=== PATIENT | male | born 1950 | race African-American/Black ===

== ENCOUNTER 2017-02-18 13:36 | Inpatient (IN) ==
--- NOTE | 2017-02-18 13:50 | Emergency Department Note ---
Addendum entered and electronically signed by Kumar Pulido DO 02/18/17 14:51: MRI discussed with hospitalist for further evaluation of light headedness. Hospitalist will attempt to obtain MRI compatability from [facility] to obtain MRI workup once admitted to hospital. Original Note: Disposition Clinical Impression: Bradycardia, Light headedness Hypertension Qualifiers: Hypertension type: unspecified Qualified Code(s): I10 - Essential (primary) hypertension Disposition: Admitted As Inpatient Condition: Good Time of Disposition: 14:45 Dizziness HPI - General Chief Complaint: ED Dizziness Stated Complaint: Dizziness/Weakness Time Seen by Provider: 02/18/17 13:48 Source: patient, EMS Mode of arrival: EMS Limitations: no limitations Nursing Notes Reviewed: Yes Vital Signs Reviewed: Yes - History of Present Illness HPI Narrative: Patient is a 66-year-old male with past medical history of A. fib and currently on Coumadin, sotalol; hypertension and on losartan, hydrocodone thiazide, diabetes, COPD, fibromyalgia, previous PE in 2005. He presents today via EMS from the [facility] due to lightheadedness. He is also been having chest pain or, shortness breath, nausea for the past 2 to days. Patient states that 2 days ago, he started having intermittent chest pain that is sharp in nature, center of his chest with no radiation, occurs at rest, associated with shortness of breath, nausea, occasional sweating. Denies any vomiting. These episodes last 10-15 minutes and then go away. He also has lightheadedness during these episodes. Denies any vertigo symptoms of the room spinning. He states that he has not had any chest pain today but his lightheadedness continues, feels as though he may pass out. His blood pressure was high systolic 190s on presentation. He denies missing any doses of his home blood pressure medications of sotalol, losartan, hydrochlortathiazide. He also admits to recent urinary frequency that started today. Denies any burning, discharge, concern for STD. Otherwise, denies any fevers, vomiting, abdominal pain. He does admit to tingling of LE that is chronic for him that he contributes to chronic fibromyalgia. Otherwise denies any other new numbness, tingling, weakness. - Related Data Allergies Allergy/AdvReac Type Severity Reaction Status Date / Time acetaminophen [From Endocet] Allergy Anaphylaxis Verified 08/27/15 15:22 Oxycodone [From Endocet] Allergy Anaphylaxis Verified 08/27/15 15:22 All systems ED: reviewed and negative except as stated. Constitutional: Denies: fever Cardiovascular: Reports: chest pain. Denies: palpitations Respiratory: Reports: dyspnea. Denies: cough, wheezes, hemoptysis Gastrointestinal: Reports: nausea. Denies: abdominal pain, vomiting, diarrhea Genitourinary: Reports: frequency. Denies: urgency, dysuria, hematuria, discharge Neurological: Reports: paresthesias (chronic lower extremities). Denies: headache, weakness, numbness Past Medical History - Past Medical History Attestation: Yes The following information was validated with the patient. Source: patient Medical history: Reports: arthritis, asthma, atrial fibrillation, COPD, DVT, diabetes, fibromyalgia, GERD, hyperlipidemia, hypertension, pulmonary embolus Psychiatric history: Reports: no psych history - Social History Smoking Status: Current every day smoker Smokeless Tobacco Status: No Alcohol use: Reports: occasionally Drug use: Reports: none Physical Exam - General Limitations: no limitations General appearance: alert, in no apparent distress - Head Head exam: atraumatic, normocephalic, normal inspection - Eye Eye exam: Present: normal appearance, PERRL, EOMI - ENT ENT exam: normal exam, normal oropharynx, mucous membranes moist - Neck Neck exam: Present: normal inspection, full ROM, trachea midline - Chest Chest inspection: Present: normal inspection, symmetric chest wall rise - Respiratory Respiratory exam: Present: normal lung sounds bilaterally - Cardiovascular Cardiovascular exam: Present: normal rhythm, bradycardia, normal heart sounds - Abdominal Exam Abdominal exam: Present: soft, Non-Tender. Absent: tenderness, distention, guarding, rebound, rigidity - Extremities Exam Extremities exam: Present: normal inspection, full ROM. Absent: tenderness, pedal edema - Neurological Exam Neurological exam: Present: alert, oriented X3, CN II-XII intact. Absent: motor sensory deficit ((crhonic tingling of bialteral LE)) - Psychiatric Psychiatric exam: Present: normal affect, normal mood - Skin Skin exam: Present: warm, dry, intact, normal color Course Course Narrative: Blood pressure presentation was systolic of 180s, diastolic 110. Repeat blood pressure shows systolic blood pressure of 190. Patient also bradycardic in the 40s to 50s. Otherwise, the rest of the vitals within normal limits. Patient is in no distress on presentation, mentating well, no focal deficits, heart regular rhythm, sinus bradycardia, abdomen exam benign, no swelling of the lower extremities bilaterally. Majority of the workup was done at the [facility]. EKG shows sinus bradycardia with no acute ST changes, white blood cell count 5.9, hemoglobin 16.1, platelets 185, BMP shows a sodium of 140 , potassium 3.7, chloride 104, CO2 28, glucose 121, BUN 16, creatinine 1.19, GFR greater than 60, calcium 8.8, AST 22, a LT 32, T bili 0.9, CK 200, troponin less than 0.015, TSH 1.770, INR 2.7. Chest x-ray shows heart size normal, left chest wall AICD, no lobar consolidation or effusion or pneumothorax, faint patchy opacity at the peripheral left lung base that could be atelectasis versus scarring. We will also obtain urinalysis due to urinary frequency. Will order repeat troponin level, repeat EKG, nitroglycerin drip for blood pressure control in setting of bradycardia, CT of the head due to lightheadedness. I do believe that the patient's lightheadedness is likely secondary to hypertension. Patient states that normally his blood pressure is very well controlled. He has no chest pain or shortness of breath this time. 14:30 repeat blood pressure without medication is now 140 systolic. We will hold blood pressure medication for now. Pulse still in 40s-50s. Patient may have symptomatic bradycardia. 14:[address] negative. Awaiting repeat troponin level. Already spoken to Dr. Hammer, hospitalist, who has accepted the patient for admission. Vitals remain at pulse 50s, systolic blood pressure in the 140s prior to admission. Vital Signs Temperature 97.6 F 02/18/17 13:38 Pulse Rate 49 02/18/17 13:38 Respiratory Rate 18 02/18/17 13:38 Blood Pressure 183/112 02/18/17 13:38 O2 Sat by Pulse Oximetry 100 02/18/17 13:38 Temperature 97.6 F 02/18/17 13:38 Pulse Rate 52 02/18/17 14:21 Respiratory Rate 16 02/18/17 14:21 Blood Pressure 141/93 02/18/17 14:21 O2 Sat by Pulse Oximetry 100 02/18/17 14:21 Oxygen Delivery Oxygen Delivery Room Air Dizziness - MDM Narrative Medical decision making narrative: EKG shows sinus bradycardia with no acute ST changes, white blood cell count 5.9 , hemoglobin 16.1, platelets 185, BMP shows a sodium of 140, potassium 3.7, chloride 104, CO2 28, glucose 121, BUN 16, creatinine 1.19, GFR greater than 60 , calcium 8.8, AST 22, a LT 32, T bili 0.9, CK 200, troponin less than 0.015, TSH 1.770, INR 2.7. Chest x-ray shows heart size normal, left chest wall AICD, no lobar consolidation or effusion or pneumothorax, faint patchy opacity at the peripheral left lung base that could be atelectasis versus scarring. We will also obtain urinalysis due to urinary frequency. Will order repeat troponin level, repeat EKG, nitroglycerin drip for blood pressure control in setting of bradycardia, CT of the head due to lightheadedness. I do believe that the patient's lightheadedness is likely secondary to hypertension. Patient states that normally his blood pressure is very well controlled. He has no chest pain or shortness of breath this time. 14:30 repeat blood pressure without medication is now 140 systolic. We will hold blood pressure medication for now. Pulse still in 40s-50s. Patient may have symptomatic bradycardia. 14:[address] negative. Awaiting repeat troponin level. Already spoken to Dr. Hammer, hospitalist, who has accepted the patient for admission. Vitals remain at pulse 50s, systolic blood pressure in the 140s prior to admission. - Medical Records Medical records reviewed: Yes I reviewed the patient's medical records. - Lab Data Lab results reviewed: Yes I reviewed the patient's lab results. Lab Results 02/18/17 02/18/17 Range/Units 13:55 14:23 Troponin I 0.00 (0-0.03) ng/mL Urine Color Yellow (Yellow) Urine Clarity Clear (Clear) Urine pH 7.0 (5.0-8.0) pH Units Ur Specific [place] 1.014 (1.010-1.025) Urine Protein Negative (Neg-Trace) mg/dL Urine Glucose (UA) Normal (Normal) mg/dL Urine Ketones Negative (Negative) mg/dL Urine Blood Trace H (Negative) Urine Nitrite Negative (Negative) Urine Bilirubin Negative (Negative) Urine Urobilinogen Normal (Normal) mg/dL Ur Leukocyte Esterase Negative (Negative) Urine Microscopic RBC 5-15 H (0-3) per hpf Urine Microscopic WBC 0-3 (0-3) per hpf Ur Squamous Epith Cells Few (None-Few) per lpf Urine Bacteria None Seen (None-Few) per hpf Hyaline Casts None Seen (None-Few) per lpf Ur Culture Indicated? NO (NO) - Radiology Data Radiology results reviewed: Yes I reviewed the patient's radiology results. - EKG Data EKG attestation: Yes I reviewed and interpreted this EKG. EKG results narrative: 02/18/2017 at 13:41. Sinus bradycardia. Rate 50. CA 165. QRS 90. QTc 446. Normal axis. No acute ST elevation or depression. S.B.A.R. - Jen.Denisha.Katarina Situation: Demographics, MOA Background: Presenting Complaint, Relevant PMH, Meds, & Allergies Assessment: Vital Signs, Course and respsone to treatment, Exam Concerns, Patient/Family Expectation, Pertinant Lab Results, Outstanding Labs Recommendation: Barrier(s) to disposition, Recommendation based on pending studies, treatments, or consults S.B.Katarina Report Given to: Dr. Jaquelin Celestin Repor Time: 14:45 Attestation Statement - Attestation Attestation: I, Maykel Tadeo, examined this patient and my medical decision-making was reviewed with the [employer]/PA/Advanced Practice Nurse/Resident Physician. I agree with the documented findings, disposition and treatment plan as described except to the extent set forth below. 66-year-old male presents emergency Department with concerns of lightheadedness and weakness. Patient states symptoms started within the past 24 hours and last about 20 minutes at a time. Patient states he fell close to passing out while driving and standing earlier today. He reports chest pain 2 days ago which was sharp and stabbing which left a deep ache in his chest lasting greater than 20 minutes. Denied associated diaphoresis or shortness of breath. Patient was initially evaluated by the [place] urgent care and sent for further evaluation of his heart. Patient is bradycardic on initial evaluation. He was also hypertensive with a systolic blood pressure 190. Patient BP improved with observation and did not require antihypertensive intervention. Initial troponin negative. Patient will be admitted to the hospital for further care and evaluation.
[2017-02-18 14:25] LABS: Bilirubin,Urine Negative (Negative); Blood,Urine Trace (Negative); Clarity,Urine Clear (Clear); Color,Urine Yellow (Yellow); Glucose,Urine (UA) Normal (Normal); Ketones,Urine Negative (Negative); Leukocyte Esterase,Urine Negative (Negative); Nitrite,Urine Negative (Negative); Protein,Urine Negative (Neg-Trace); Specific Gravity,Urine 1.014 (1.010-1.025); Urobilinogen,Urine Normal (Normal)
[2017-02-18 14:28] LABS: Bacteria,Urine None Seen per hpf (None-Few); Hyaline Casts,Urine None Seen per lpf (None-Few); Squamous Epithelial Cell,Urine Few per lpf (None-Few); WBC,Urine 0-3 per hpf (0-3)
[2017-02-18] MEDS ORDERED: Naloxone 0.4 MG/ML INJ IVP PRN (15:04)
--- NOTE | 2017-02-18 15:04 | Internal Med History&Physical ---
Date of Encounter: 02/18/17 Time of Encounter: 15:03 Assessment and Plan (1) TIA (transient ischemic attack) Current visit: Yes Status: Acute 66/male [place] Had a chest pain for last 48 hours. Admitted with persistent dizziness ongoing for more than [address] head/first troponin: Negative Patient has a defibrillator/pacemaker Plan: Admit as inpatient: Need frequent neuro checks and close observation. Aspirin/Lipitor/warfarin/sotalol. Cycle troponin. Echocardiogram: Ultrasound carotid. Physical therapy/occupational therapy evaluation MRI brain without contrast: [facility] pacemaker compatibility with MRI MRI order is not placed Resume home medications. I have examined this patient in the emergency room #15. Plan discussed with the patient and he verbalized understanding. Qualifiers: Transient cerebral ischemia type: unspecified Qualified Code(s): G45.9 - Transient cerebral ischemic attack, unspecified (2) Light headedness Current visit: Yes Status: Acute See above (3) Bradycardia Current visit: Yes Status: Acute Telemetric monitoring If persistent bradycardia and dizziness continues then possible opinion from cardiology tomorrow by morning team. (4) Hypertension Current visit: Yes Status: Acute Upon arrival patient was hypertensive. His medications/home medications resumed and now blood pressure is within acceptable range. We will resume her medications. Qualifiers: Hypertension type: unspecified Qualified Code(s): I10 - Essential (primary ) hypertension (5) Diabetes mellitus Current visit: Yes Status: Acute Presently on nighttime insulin. We will follow the subcutaneous insulin orders set and will follow the recommendations accordingly Qualifiers: Diabetes mellitus type: type 2 Diabetes mellitus complication status: with unspecified complications Diabetes mellitus salvage determiner insulin use: unspecified salvage determiner insulin use status Qualified Code(s): E11.8 - Type 2 diabetes mellitus with unspecified complications (6) Atrial fibrillation Current visit: Yes Status: Acute Well-controlled atrial fibrillation. Yoan laura: Sotalol Anticoagulation: Warfarin We will continue present management Qualifiers: Atrial fibrillation type: unspecified Qualified Code(s): I48.91 - Unspecified atrial fibrillation (7) DVT prophylaxis Current visit: Yes Status: Acute Patient on warfarin. Medical decision making: This patient has a moderate to severe risk of worsening in spite of being on appropriate medication due to the underlying comorbid condition Internal Medicine - H&P: HPI Chief complaint: Near syncopal episode. Plans for Post Hospital Care: Home History of present illness: PCP: Pedro Luis team from [place] Brief past medical history: Coronary artery disease, hypertension, hyperlipidemia, atrial fibrillation on warfarin and sotalol, diabetes, fibromayalgia, previous pulmonary embolism in 2005. History of present medical illness: Patient was experiencing lightheadedness for the past 2 days. His description of lightheadedness is that he was a spinning and it was extremely difficult to control that feeling of dizziness once it starts. This dizziness used to last for 10-15 minutes and it happened since Wednesday repeatedly few times. Patient is also experiencing chest pain for past 2 days. Chest pain was central in location nonradiating, localized and not relieved by rest. This morning when a similar episode happened he called his was in sabianist attending service. Patient could not take those dizzy spells and that is the reason the squad was called. Patient was taken to the [facility]. He was examined there and was transferred to this hospital for further evaluation by EMS Workup in the emergency room: Patient was evaluated in the emergency room. Basic labs were drawn. Troponin was negative. CT head did not show any abnormality. Reason for admission: Syncopal episode to rule out CVA. Family history: Noncontributory Past Med Surg Social Fam HX - Past Medical History Medical history: arthritis, asthma, atrial fibrillation, COPD, DVT, diabetes, fibromyalgia, GERD, hyperlipidemia, hypertension, pulmonary embolus Psychiatric history: no psych history - Social History Smoking Status: Current every day smoker Smokeless Tobacco Status: No Alcohol use: occasionally Drug use: none Internal Medicine - H&P: Meds Atorvastatin [Lipitor] 40 mg PO HS 02/18/17 [History] Ergocalciferol (VITAMIN D2) [Vitamin D2] 50,000 unit PO QWEEK 02/18/17 [History] Gabapentin [Neurontin] 700 mg PO BID 02/18/17 [History] Insulin Glargine,Hum.rec.anlog [Lantus Solostar] 42 unit SQ QAM 02/18/17 [ History] Ipratropium [ATROVENT Inhaler] 2 puff IH BID 02/18/17 [History] Magnesium Hydroxide [Milk of Magnesia] 30 ml PO BID 02/18/17 [History] Meclizine [Antivert] 12.5 mg PO TID PRN 02/18/17 [History] Naproxen Sodium [Naproxen Sodium] 550 mg PO BID 02/18/17 [History] Sotalol HCl [Betapace] 120 mg PO Q12H 02/18/17 [History] Warfarin [Coumadin] 5 mg PO [id number] 02/18/17 [History] Warfarin [Coumadin] 6 mg PO CORREA 02/18/17 [History] hydroCHLOROthiazide [Hydrochlorothiazide] 25 mg PO DAILY 02/18/17 [History] 3 Allergy/AdvReac Type Severity Reaction Status Date / Time acetaminophen [From Endocet] Allergy Anaphylaxis Verified 08/27/15 15:22 Oxycodone [From Endocet] Allergy Anaphylaxis Verified 08/27/15 15:22 All Systems PM: A 10-system review of systems was performed and is negative for pertinent findings except as documented above in the HPI. - Constitutional Constitutional: no chills, no fever(s), no night sweats - EENT Eyes: no change in vision, no discharge, no pain, no photophobia Ears: no ear discharge, no ear pain, no tinnitus Nose, mouth and throat: no dysphagia, no nasal discharge, no neck pain, no sore throat - Cardiovascular Cardiovascular ROS IM: chest pain, diaphoresis, lightheadedness, palpitations, no dyspnea, no syncope - Respiratory Respiratory: no cough, no dyspnea, no wheezing, no excessive phlegm production - Gastrointestinal Gastrointestinal: no abdominal pain, no diarrhea, no hematemesis, no hematochezia, no melena, no nausea, no vomiting - Musculoskeletal Musculoskeletal ROS IM: no numbness, no tingling - Integumentary Integumentary IM: no rash, no unusual bruising - Neurological Neurological ROS: no confusion, no convulsions, no focal weakness, no numbness, no tingling, no tremor(s) - Hematologic/Lymphatic Hematologic/Lymphatic: no easy bruising - Constitutional Vitals: Temp Pulse Resp BP Pulse Ox 97.6 F 52 16 141/93 100 02/18/17 13:38 02/18/17 14:21 02/18/17 14:21 02/18/17 14:21 02/18/17 14:21 General appearance: Present: A&O X 3, pleasant, no acute distress, answers questions appropriately - Head Head exam: Present: atraumatic, normocephalic - Eye Eye exam: Present: PERRL, conjuntiva pink, sclera anicteric Pupils: Present: PERRL - Neck Neck exam general surgery: Present: supple, trachea midline. Absent: lymphadenopathy - Respiratory Respiratory exam: Present: CTAB. Absent: accessory muscle use, rales, rhonchi, wheezes - Cardiovascular Cardiovascular exam: Present: RRR, +S1, +S2. Absent: diastolic murmur, gallop, rubs, systolic murmur - GI/Abdominal GI/Abdominal exam: Present: normal bowel sounds, soft, no peritoneal signs. Absent: distended, tenderness - Extremities Exam Extremities exam: Present: warm, radial pulses palpable and symmetrical. Absent : calf tenderness, cyanotic, pedal edema - Neurological Exam Neurological exam: Present: CN II-XII intact, oriented X3, no focal deficits. Absent: pronater drift, facial droop, speech deficit - Skin Skin exam: Present: dry, intact
[2017-02-18] MEDS ORDERED: *HR* Warfarin 2 MG TABLET PO SCH (15:15)
[2017-02-18] MEDS ORDERED: Dextrose Gel 15 GM PO PRN ×2 (15:22)
[2017-02-18] MEDS ORDERED: D5% in Water 1,000 ML IVC PRN (15:22)
[2017-02-18] MEDS ORDERED: *HR* Dextrose 50 % in Water (Syg) 50 ML SYRINGE IVP PRN (15:22)
[2017-02-18 15:58] LABS: INR 2.4; Prothrombin Time 26.7 Seconds (9.4-12.1)
[2017-02-18] MEDS: Insulin LISPRO 300 UNITS/3 ML VIAL SQ SCH ×2 (16:52→20:32)
[2017-02-18] MEDS: *HR* Warfarin 2 MG TABLET PO SCH (17:36)
[2017-02-18] MEDS: Gabapentin 100 MG CAPSULE PO SCH (20:29)
[2017-02-18] MEDS ORDERED: MOM Conc 10 ML UD.LIQ PO PRN (21:00)
[2017-02-19 03:01] LABS: Basophils % 0.4 %; Eosinophils # 0.3 K/mcL (0.0-0.6); Eosinophils % 5.5 %; Hematocrit 48.3 % (37.5-50.1); Hemoglobin 16.5 g/dL (12.9-16.9); Immature Granulocytes % 0.2 % (0-4); Lymphocytes % 36.4 %; Mean Corpuscular HGB Conc 34.2 g/dL (31.6-35.5); Mean Corpuscular Hemoglobin 31.4 pg (28.0-33.3); Mean Platelet Volume 10.5 fL (9.4-12.4); Monocytes # 0.5 K/mcL (0.0-1.3); Monocytes % 9.3 %; Neutrophils # 2.7 K/mcL (1.6-8.9); Platelet Count 168 K/mcL (140-400); Red Blood Count 5.25 M/mcL (4.19-5.50); Red Cell Distribution Width 13.1 % (11.5-14.5); Segmented Neutrophils % 48.2 %
[2017-02-19 03:23] LABS: INR 2.2
[2017-02-19 03:24] LABS: Alanine Aminotransferase 25 Units/L (0-55); Albumin 3.4 g/dL (3.5-5.0); Albumin/Globulin Ratio 1.1 (1.1-2.2); Alkaline Phosphatase 98 Units/L (38-126); Aspartate Amino Transferase 23 Units/L (5-34); BUN/Creatinine Ratio 14 (6-26); Bilirubin,Total 1.1 mg/dL (0.2-1.2); Blood Urea Nitrogen 15 mg/dL (8-26); Calcium 9.3 mg/dL (8.6-10.8); Carbon Dioxide 26 mEq/L (19-29); Chloride 106 mEq/L (98-109); Chol/HDL Ratio 3.3 (0-4.9); Cholesterol 112 mg/dL (< 200); Globulin 3.1 g/dL (2.4-3.5); Glucose 84 mg/dL (70-99); HDL Cholesterol 34 mg/dL (40-59); LDL Cholesterol,Calculated 58 mg/dL (0-99); Osmolality,Calculated 292 (280-300); Phosphorous 3.2 mg/dL (2.3-4.7); Potassium 3.6 mEq/L (3.5-4.5); Sodium 141 mEq/L (136-145); Total Protein 6.5 g/dL (6.0-8.3); Triglycerides 99 mg/dL (< 150); eGFR For African Americans > 60 (> 60); eGFR For Non-African Americans > 60 (> 60)
[2017-02-19 03:26] LABS: Activated Partial Thrombo Time 45.5 Seconds (26.0-36.0)
[2017-02-19] MEDS: Ipratropium 1 PUFF INHALER IH PRN ×2 (04:31→16:31)
--- NOTE | 2017-02-19 09:41 | Internal Med Progress Note ---
Date of Encounter: 02/19/17 Time of Encounter: 09:39 - Assessment and plan (1) TIA (transient ischemic attack) Current Visit: Yes Status: Acute Assessment and plan: No further symptoms suggestive of TIA. Patient is currently on warfarin. His INR is therapeutic. CT scan of the head did not reveal any stroke/bleed. Patient has a defibrillator/pacemaker. Patient claims that in the past he had a MRI along with this device. We do not have any record of the same in this hospital. I informed unit coordinator to get more information regarding same from [place]. Qualifiers: Transient cerebral ischemia type: unspecified Qualified Code(s): G45.9 - Transient cerebral ischemic attack, unspecified (2) Light headedness Current Visit: Yes Status: Acute Assessment and plan: No more lightheadedness. (3) Bradycardia Current Visit: Yes Status: Acute Assessment and plan: Patient's heart rate is between 60 and 64. (4) Hypertension Current Visit: Yes Status: Acute Assessment and plan: Patient's blood pressure is within acceptable limits. Qualifiers: Hypertension type: unspecified Qualified Code(s): I10 - Essential (primary ) hypertension (5) Diabetes mellitus Current Visit: Yes Status: Acute Assessment and plan: Blood glucose is well controlled Qualifiers: Diabetes mellitus type: type 2 Diabetes mellitus complication status: with unspecified complications Diabetes mellitus terminal operations manager insulin use: unspecified custodial insulin use status Qualified Code(s): E11.8 - Type 2 diabetes mellitus with unspecified complications (6) Atrial fibrillation Current Visit: Yes Status: Acute Assessment and plan: Known evidence of rapid ventricular rate. Atrial fibrillation is well controlled. Anticoagulation: Coumadin. Yoan laura: Sotalol Qualifiers: Atrial fibrillation type: unspecified Qualified Code(s): I48.91 - Unspecified atrial fibrillation (7) DVT prophylaxis Current Visit: Yes Status: Acute Assessment and plan: Warfarin - Subjective Interval history: Patient seen and examined. Chart reviewed. Patient is comfortably sitting up in bed. Patient denies any chest pain, nausea, shortness of breath, dizziness, abdominal pain, or diarrhea. Patient is keen to go home. I had a long discussion with the patient and explained him the need to stay in the hospital to prevent rehospitalization with the similar symptoms. He verbalized understanding and promised me to cooperate in the workup.. - Constitutional Vitals: Temp Pulse Resp BP Pulse Ox 97.7 F 62 16 130/84 99 02/19/17 03:11 02/19/17 03:11 02/19/17 04:32 02/19/17 03:11 02/19/17 04:32 General appearance: Present: A&O X 3, pleasant, no acute distress, answers questions appropriately - Head Head exam: Present: atraumatic, normocephalic - Eye Eye exam: Present: PERRL, conjuntiva pink, sclera anicteric Pupils: Present: PERRL - Neck Neck exam general surgery: Present: supple, trachea midline. Absent: lymphadenopathy - Respiratory Respiratory exam: Present: CTAB. Absent: accessory muscle use, rales, rhonchi, wheezes - Cardiovascular Cardiovascular exam: Present: RRR, +S1, +S2. Absent: diastolic murmur, gallop, rubs, systolic murmur - GI/Abdominal GI/Abdominal exam: Present: normal bowel sounds, soft, no peritoneal signs. Absent: distended, tenderness - Extremities Exam Extremities exam: Present: warm, radial pulses palpable and symmetrical. Absent : calf tenderness, cyanotic, pedal edema - Neurological Exam Neurological exam: Present: CN II-XII intact, oriented X3, no focal deficits. Absent: pronater drift, facial droop, speech deficit - Skin Skin exam: Present: dry, intact Internal Medicine: Result - Labs CBC & Chem 7: 02/19/17 02:49 02/19/17 02:49 Labs: Short CBC 02/19/17 Range/Units 02:49 WBC 5.5 (4.3-11.1) K/mcL Hgb 16.5 (12.9-16.9) g/dL Hct 48.3 (37.5-50.1) % Plt Count 168 (140-400) K/mcL Neutrophils # 2.7 (1.6-8.9) K/mcL BMP 02/19/17 02:49 Sodium 141 Potassium 3.6 Chloride 106 Carbon Dioxide 26 BUN 15 Creatinine 1.11 Glucose 84 Calcium 9.3 Cardiac Enzymes 02/19/17 Range/Units 02:49 Troponin I 0.00 (0-0.03) ng/mL Liver Function 02/19/17 Range/Units 02:49 Total Bilirubin 1.1 (0.2-1.2) mg/dL AST 23 (5-34) Units/L ALT 25 (0-55) Units/L Alkaline Phosphatase 98 (38-126) Units/L Albumin 3.4 L (3.5-5.0) g/dL - ABG Interpretation ABG results: PT/INR, D-dimer PT 24.0 Seconds (9.4-12.1) H 02/19/17 02:49 Consult Discharge Plan - Plan Referrals: NONE,PCP [Primary Care Provider] -
[2017-02-19] MEDS: hydroCHLOROthiazide 25 MG TABLET PO SCH (10:13)
[2017-02-19] MEDS: Gabapentin 100 MG CAPSULE PO SCH ×2 (10:13→20:11)
[2017-02-19] MEDS: Aspirin Enteric Coated 81 MG Tablet PO SCH (10:14)
[2017-02-19] MEDS: Insulin LISPRO 300 UNITS/3 ML VIAL SQ SCH ×4 (10:14→20:40)
[2017-02-19] MEDS: Insulin DETEMIR 100 UNIT/ML X5UNITS SQ SCH (10:17)
[2017-02-19] MEDS: Tiotropium 18 MCG inhalation IH SCH (11:24)
[2017-02-19] MEDS: *HR* Warfarin 2 MG TABLET PO SCH (17:45)
[2017-02-20] MEDS: Gabapentin 100 MG CAPSULE PO SCH (08:09)
[2017-02-20] MEDS: Insulin LISPRO 300 UNITS/3 ML VIAL SQ SCH ×3 (08:09→16:25)
[2017-02-20] MEDS: Aspirin Enteric Coated 81 MG Tablet PO SCH (08:10)
[2017-02-20] MEDS: hydroCHLOROthiazide 25 MG TABLET PO SCH (08:11)
[2017-02-20] MEDS: Insulin DETEMIR 100 UNIT/ML X5UNITS SQ SCH (08:11)
[2017-02-20] MEDS: Tiotropium 18 MCG inhalation IH SCH (10:16)
[2017-02-20] MEDS: Ipratropium 1 PUFF INHALER IH PRN (10:24)
--- NOTE | 2017-02-20 14:26 | Internal Med Progress Note ---
Date of Encounter: 02/20/17 - Constitutional Vitals: Temp Pulse Resp BP Pulse Ox 97.9 F 49 18 152/88 99 02/20/17 11:13 02/20/17 11:13 02/20/17 11:13 02/20/17 12:37 02/20/17 11:13 General appearance: Present: A&O X 3, pleasant, no acute distress, answers questions appropriately Internal Medicine: Result - Labs CBC & Chem 7: 02/19/17 02:49 02/19/17 02:49 - ABG Interpretation ABG results: PT/INR, D-dimer PT 24.0 Seconds (9.4-12.1) H 02/19/17 02:49 Consult Discharge Plan - Plan Referrals: NONE,PCP [Primary Care Provider] -
[2017-02-20 16:12] VITALS: BP 158/91
--- NOTE | 2017-02-20 17:42 | Cardiology Consult Note ---
<She Latham - Last Filed: 02/20/17 17:39> Date of Encounter: 02/20/17 Time of Encounter: 15:00 Assessment and Plan (1) Light headedness Status: Acute Per cardiology: -Patient presents for lightheadedness, states he noticed more upon position changes. -Medtronic AICD interrogated and showed normal functioning, no arrythmias noted. However did show optival impendence had decreased (?dehydration). Patient 's device is not MRI compatible. -Troponins negative, -TTE this admission with LVEf 60%, no wall motion abnormalities. -Denies chest pain. -No ECG changes. -Will check orthostatic vital signs. -Recommend patient follow up with his primary director life sales at the [place] after discharge. Discussion w patient/family: The assessment and plan as outlined above was discussed with the patient who expressed understanding and agreement. All questions were answered. Thank you for involving us in the care of your patient. Please call with any questions. Discussed and reviewed with . History of Present Illness Consult date: 02/20/17 Requesting physician: Joshua Shaikh Consult reason: possible arrythmia, dizziness Chief complaint: dizziness History of present illness: Mr. Charles is a 66 year old male with a relevant past medical history of cardiomyopathy, AICD, HTN, hyperlipidemia, atrial fibrillation, COPD, DM, PE, DVT. Patient presents to [facility] with complaints of dizziness. Patient states he notices dizziness upon position changes. Patient reported some shortness of breath, however states it is about his baseline. Patient denied chest pain upon my assessment. Past Med Surg Social Fam HX - Past Medical History Attestation: Yes The following information was validated with the patient. Source: patient Medical history: arthritis, asthma, atrial fibrillation, cardiomyopathy, COPD, DVT, diabetes, fibromyalgia, GERD, hyperlipidemia, hypertension, pulmonary embolus Psychiatric history: no psych history - Past Surgical History Surgical History: appendectomy, herniorrhaphy - Social History Smoking Status: Current every day smoker Packs per day: 1/2 Smokeless Tobacco Status: No Alcohol use: occasionally Drug use: none - Family History Mother Living Status: Still Living Father Living Status: Age at : 60 Cause of : brain aneurysm Medications and Allergies Alfuzosin HCl [Uroxatral] 10 mg PO DAILY 02/18/17 [History] Aspirin Enteric Coated [Aspirin EC] 81 mg PO DAILY 02/18/17 [History] Atorvastatin [Lipitor] 40 mg PO HS 02/18/17 [History] Ergocalciferol (VITAMIN D2) [Vitamin D2] 50,000 unit PO QWEEK 02/18/17 [History] Gabapentin [Neurontin] 700 mg PO BID 02/18/17 [History] Insulin Glargine,Hum.rec.anlog [Lantus Solostar] 42 unit SQ QAM 02/18/17 [ History] Ipratropium [ATROVENT Inhaler] 2 puff IH BID 02/18/17 [History] Losartan Potassium [Cozaar] 100 mg PO DAILY 02/18/17 [History] Magnesium Hydroxide [Milk of Magnesia] 30 ml PO BID 02/18/17 [History] Meclizine [Antivert] 12.5 mg PO TID PRN 02/18/17 [History] Sotalol HCl [Betapace] 120 mg PO Q12H 02/18/17 [History] Warfarin [Coumadin] 5 mg PO MOTUWETHFRSA 02/18/17 [History] Warfarin [Coumadin] 6 mg PO CORREA 02/18/17 [History] hydroCHLOROthiazide [Hydrochlorothiazide] 25 mg PO DAILY 02/18/17 [History] 3 Allergy/AdvReac Type Severity Reaction Status Date / Time acetaminophen [From Endocet] Allergy Anaphylaxis Verified 08/27/15 15:22 Oxycodone [From Endocet] Allergy Anaphylaxis Verified 08/27/15 15:22 All Systems Review: A 10-system review of systems was performed and is negative for pertinent findings except as documented above in the HPI. - Cardiovascular Cardiovascular: as per HPI, lightheadedness Physical Examination Vital Signs, Last 4 Hours Temp Pulse Resp BP Pulse Ox 02/20/17 16:10 97.6 F 62 14 158/91 98 02/20/17 16:00 97.8 F 59 18 158/91 99 General: Conversant, No Apparent Distress HEENT: Atraumatic, Normocephaly, Mucus Membranes Moist Neck: No JVD, Normal carotid pulses Cardiac: Reg Rate and Rhythm, Normal S1 and S2, No Murmur Lungs: Normal Breath Sounds, No Wheeze, Rales, Rhonchi Neuro: Alert and responsive, No focal deficits noted Abdomen: Soft, Non-Tender Skin: No rashes noted on visualized skin Musculoskeletal: No Chest Wall Tenderness Extremities: No Clubbing, No Cyanosis, No Edema, Normal Pulses Results 02/19/17 02:49 02/19/17 02:49 Active Medications Aspirin (Aspirin Ec) 81 mg PO DAILY [facility] Stop: 08/21/17 09:01 Last Admin: 02/20/17 08:10 Dose: 81 mg Atorvastatin Calcium (Lipitor) 40 mg PO HS [facility] Stop: 08/20/17 21:01 Last Admin: 02/19/17 20:12 Dose: 40 mg Dextrose/Water (Dextrose 50% (Syg)) 25 ml IVP AD PRN PRN Reason: Hypoglycemia Stop: 08/20/17 15:23 Ergocalciferol (Drisdol (50,000 Unit)) 50,000 unit PO QWEEK [facility] Stop: 08/20/17 15:16 Last Admin: 02/18/17 16:38 Dose: Not Given Gabapentin (Neurontin) 700 mg PO BID [facility] Stop: 08/20/17 21:01 Last Admin: 02/20/17 08:09 Dose: 700 mg Glucagon (Glucagen) 1 mg IM ONCE PRN PRN Reason: Hypoglycemia Stop: 08/20/17 15:23 Glucose (Gluctose) 15 gm PO ONCE PRN PRN Reason: Hypoglycemia Stop: 08/20/17 15:23 Glucose (Gluctose) 30 gm PO ONCE PRN PRN Reason: Hypoglycemia Stop: 08/20/17 15:23 Hydrochlorothiazide (Hydrochlorothiazide) 25 mg PO DAILY [facility] PRN Reason: Protocol Stop: 08/21/17 09:01 Last Admin: 02/20/17 08:11 Dose: 25 mg Dextrose (Dextrose 5%) 1,000 mls @ 100 mls/hr IVC .Q10H PRN PRN Reason: HYPOGLYCEMIA Stop: 08/20/17 15:23 Insulin Detemir (Levemir) 42 unit SQ DAILY [facility] Stop: 08/21/17 09:01 Last Admin: 02/20/17 08:11 Dose: 42 unit Insulin Human Lispro (Humalog) 0 units SQ TIDAC [facility] PRN Reason: Protocol Stop: 08/20/17 16:31 Last Admin: 02/20/17 16:25 Dose: Not Given Insulin Human Lispro (Humalog) 0 units SQ [facility] PRN Reason: Protocol Stop: 08/20/17 21:01 Last Admin: 02/19/17 20:40 Dose: Not Given Ipratropium Maskell (Atrovent Inhaler) 2 puff IH [id number] PRN PRN Reason: Shortness Of Breath/Wheezing Stop: 08/21/17 10:01 Last Admin: 02/20/17 10:24 Dose: 2 puff Magnesium Hydroxide (Milk Of Magnesia Conc) 30 ml PO BID PRN PRN Reason: Indigestion Stop: 08/20/17 21:01 Naloxone HCl (Narcan) 0.4 mg IVP Q2MIN PRN PRN Reason: Opioid Reversal Stop: 08/20/17 15:05 Sotalol HCl (Betapace) 120 mg PO 0800,2000 [facility] Stop: 08/20/17 15:16 Last Admin: 02/20/17 08:10 Dose: 120 mg Tiotropium [place]askell (Spiriva) 18 mcg IH DAILYR [facility] Stop: 08/21/17 10:01 Last Admin: 02/20/17 10:16 Dose: 18 mcg Warfarin Sodium (Coumadin) 6 mg PO CORREA@1800 [facility] Stop: 08/23/17 18:01 Warfarin Sodium (Coumadin) 5 mg PO MOTUWETHFRSA@1800 [facility] Stop: 08/20/17 18:01 Last Admin: 02/19/17 17:45 Dose: 5 mg Laboratory Tests 02/18/17 02/19/17 02/19/17 14:23 02:49 02:49 Hgb 16.5 Creatinine 1.11 Troponin I 0.00 02/19/17 02:49 Hgb Creatinine Troponin I 0.00 - Imaging and Cardiology Chest Xray: report reviewed Echo: report reviewed - EKG Interpretation EKG results cardiology: personally reviewed (ECG with SB, HR 50. QT 472, QTc 446ms.), other (Telemetry reviewed with average HR previous 12 hours noted to be 64, sinus rhythm with intermittent pacing. PVCS and PACs noted.) Consult Discharge Plan - Plan Instructions: Atrial Fibrillation (DC) Additional Instructions: Follow-up with the neurologist in 2 weeks for follow-up with director life sales in 1- 2 weeks Follow-up appointments: If there is not an appointment listed below, please call your physician and schedule a follow-up appointment. If you have congestive heart failure and your symptoms return, make an appointment with your physician. Medication List: Carry an up to date list of medications you are taking at all time. We have given you an updated medication list including any new medications that you have been prescribed. Please provide that list to your primary provider Symptoms: If your condition changes or you experience any of the following symptoms, notify your physician immediately: Unusual or worsening pain, fever, persistent nausea and vomiting, bleeding, increase in swelling (especially in your legs), sudden weight gain, extreme dizziness, chest pain, increased drainage or redness from a wound or incision. Go to the emergency department if you experience a problem with breathing. Weights: If you have a history of swelling or shortness of breath, weigh yourself daily and notify your physician if you have a weight gain of two or more pounds in one day or 5 or more pounds in a week. If you experience any of the warning signs for stroke: Sudden numbness or weakness of the face, arm or leg; especially on one side of the body, sudden confusion, trouble speaking or understanding, sudden trouble seeing in one or both eyes, sudden trouble walking, dizziness, loss of balance or coordination, sudden sever headache with no cause; Call 911 or go to the emergency room. Stroke is a medical emergency. Some risk factors for stroke: Age, cigarette smoking, diabetes, excessive alcohol consumption, family history , high blood pressure, overweight, physical inactivity, prior stroke, heart attack, diagnosis of carotid artery stenosis or other artery disease. If you smoke, STOP: Smoking or tobacco use significantly increases your risk of heart and lung disease. Your chance of disease greatly increases if you continue to smoke. For more information, call the [place] tobacco quit line for smoking cessation 2 QUIT-NOW ( ) Referrals: NONE,PCP [Primary Care Provider] - <Jhonny Lal - Last Filed: 02/21/17 22:20> Date of Encounter: 02/20/17 Time of Encounter: 16:15 - Attending Attestation I have personally performed a face to face evaluation on this patient. I have reviewed and agree with the care plan. History and Exam by me shows: 1. Dizziness - provoked by positional changes, most pronounced with change from sitting to standing, starts several seconds after he stands up, and lasts up to 15 seconds before sensation fades, and he is able to continue walking, symptoms most consistent with orthstatic hypotension. Interrogation of AICD shows pt is maining paced rhythm, no significant arrhythmia to explain dizziness. Pt reports his symptoms have resolved, and is requesting discharge to [facility], 2. Cardiomyopathy, unclear etiology, pt unaware, old records not yet available, AICD functioning normally, recommed pt [facility] for further evaluation at discharge. Assessment and Plan Discussion w patient/family: The assessment and plan as outlined above was discussed with the patient and/or family members who expressed understanding and agreement. All questions were answered. Thank you for involving us in the care of your patient. Please call with any questions. History of Present Illness History of present illness: Mr. Charles is a 66 year old male All Systems Review: A 10-system review of systems was performed and is negative for pertinent findings except as documented above in the HPI. Results 02/19/17 02:49 02/19/17 02:49
[2017-02-20] MEDS: *HR* Warfarin 2 MG TABLET PO SCH (18:13)
--- NOTE | 2017-02-20 18:21 | Discharge Summary ---
Date of Encounter: 02/20/17 Time of Encounter: 20:00 - Discharge Diagnosis (1) TIA (transient ischemic attack) Priority: Primary Status: Acute Qualifiers: Transient cerebral ischemia type: unspecified Qualified Code(s): G45.9 - Transient cerebral ischemic attack, unspecified (2) Diabetes mellitus Priority: Secondary Status: Acute Qualifiers: Diabetes mellitus type: type 2 Diabetes mellitus complication status: with unspecified complications Diabetes mellitus custodial insulin use: unspecified rodent exterminator insulin use status Qualified Code(s): E11.8 - Type 2 diabetes mellitus with unspecified complications (3) Atrial fibrillation Priority: Secondary Status: Acute Qualifiers: Atrial fibrillation type: unspecified Qualified Code(s): I48.91 - Unspecified atrial fibrillation - Discharge Medications Home Medications: Alfuzosin HCl [Uroxatral] 10 mg PO DAILY 02/18/17 [History] Aspirin Enteric Coated [Aspirin EC] 81 mg PO DAILY 02/18/17 [History] Atorvastatin [Lipitor] 40 mg PO HS 02/18/17 [History] Ergocalciferol (VITAMIN D2) [Vitamin D2] 50,000 unit PO QWEEK 02/18/17 [History] Gabapentin [Neurontin] 700 mg PO BID 02/18/17 [History] Insulin Glargine,Hum.rec.anlog [Lantus Solostar] 42 unit SQ QAM 02/18/17 [ History] Ipratropium [ATROVENT Inhaler] 2 puff IH BID 02/18/17 [History] Losartan Potassium [Cozaar] 100 mg PO DAILY 02/18/17 [History] Magnesium Hydroxide [Milk of Magnesia] 30 ml PO BID 02/18/17 [History] Meclizine [Antivert] 12.5 mg PO TID PRN 02/18/17 [History] Sotalol HCl [Betapace] 120 mg PO Q12H 02/18/17 [History] Warfarin [Coumadin] 5 mg PO MOTUWETHFRSA 02/18/17 [History] Warfarin [Coumadin] 6 mg PO CORREA 02/18/17 [History] hydroCHLOROthiazide [Hydrochlorothiazide] 25 mg PO DAILY 02/18/17 [History] Allergies/Adverse Reactions: 3 Allergy/AdvReac Type Severity Reaction Status Date / Time acetaminophen [From Endocet] Allergy Anaphylaxis Verified 05/31/16 15:22 Oxycodone [From Endocet] Allergy Anaphylaxis Verified 08/27/15 15:22 Date of admission: 02/18/17 18:45 Primary care physician: PCP NONE Consults: 02/20/17 14:24 Consult to Cardiology [CONS] Routine Comment: Consulting Provider: Cardiology Anu Reason for Consult: possible arrathmia, Cp, sob associated with dizzeness Call Completed: Yes Discharging clinician: Joshua Shaikh Anticipated date of discharge: 02/20/17 - Patient Status Disposition: Home, Self-Care Condition: Good Functional capacity at discharge: independent ambulation Overall status at discharge: patient is back to baseline - Discharge Instructions Instructions: Atrial Fibrillation (DC) Additional Instructions: Follow-up with the neurologist in 2 weeks for follow-up with sales performance analyst in 1- 2 weeks Follow-up appointments: If there is not an appointment listed below, please call your physician and schedule a follow-up appointment. If you have congestive heart failure and your symptoms return, make an appointment with your physician. Medication List: Carry an up to date list of medications you are taking at all time. We have given you an updated medication list including any new medications that you have been prescribed. Please provide that list to your primary provider Symptoms: If your condition changes or you experience any of the following symptoms, notify your physician immediately: Unusual or worsening pain, fever, persistent nausea and vomiting, bleeding, increase in swelling (especially in your legs), sudden weight gain, extreme dizziness, chest pain, increased drainage or redness from a wound or incision. Go to the emergency department if you experience a problem with breathing. Weights: If you have a history of swelling or shortness of breath, weigh yourself daily and notify your physician if you have a weight gain of two or more pounds in one day or 5 or more pounds in a week. If you experience any of the warning signs for stroke: Sudden numbness or weakness of the face, arm or leg; especially on one side of the body, sudden confusion, trouble speaking or understanding, sudden trouble seeing in one or both eyes, sudden trouble walking, dizziness, loss of balance or coordination, sudden sever headache with no cause; Call 911 or go to the emergency room. Stroke is a medical emergency. Some risk factors for stroke: Age, cigarette smoking, diabetes, excessive alcohol consumption, family history , high blood pressure, overweight, physical inactivity, prior stroke, heart attack, diagnosis of carotid artery stenosis or other artery disease. If you smoke, STOP: Smoking or tobacco use significantly increases your risk of heart and lung disease. Your chance of disease greatly increases if you continue to smoke. For more information, call the [place] tobacco quit line for smoking cessation QUIT-NOW ( ) - Diet and Activity Activity: resume usual activities as tolerated Diet: diabetic diet, low fat, low cholesterol Interval History: 66-year-old male with past medical history of coronary artery disease , hypertension, hyperlipidemia, atrial fibrillation on warfarin and sotalol, diabetes, fibromayalgia, previous pulmonary embolism in 2005. Patient was experiencing lightheadedness for the past 2 days prior to admission. His description of lightheadedness is that he was a spinning and it was extremely difficult to control that feeling of dizziness once it starts. This dizziness used to last for 10-15 minutes and it happened repeatedly few times. Patient is also experiencing chest pain for past 2 days. Chest pain was central in location nonradiating, localized and not relieved by rest. Workup in the emergency room: Patient was evaluated in the emergency room. Basic labs were drawn. Troponin was negative. CT head did not show any abnormality. Patient was admitted for Syncopal episode to rule out CVA. 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 [employer] AICD interrogated showed normal functioning, no arrythmias noted. However did show optival impendence had decreased (possible dehydration). Patient's device is not MRI compatible. Cardiac enzyme are negative ,TTE this admission with LVEf 60%, no wall motion abnormalities. No acute EKG changes, no orthostatic blood pressure changes, I had long discussion with patient counseling about benign positional vertigo, patient needs to follow up with neurology as well as with occupational medicine. Patient to follow-up with his sales performance analyst. Patient seen by cardiology team here and he reviewed his AICD interrogation . Patient was eager to go home. Patient discharged home in stable condition, discussed with patient to follow-up with neurologist for pending test. Patient understands risk and benefit Hospital course: Mr. Charles is a 66 year old male - Time Spent with Patient Total time spent providing and/or coordinating discharge services: Greater than 30 minutes - Constitutional Vitals: Temp Pulse Resp BP Pulse Ox 97.6 F 62 14 158/91 98 02/20/17 16:10 02/20/17 16:10 02/20/17 16:10 02/20/17 16:10 02/20/17 16:10 General appearance: Present: A&O X 3, pleasant, no acute distress, answers questions appropriately - Head Head exam: Present: atraumatic, normocephalic - Eye Eye exam: Present: conjuntiva pink, sclera anicteric - Neck Neck exam general surgery: Present: supple, trachea midline. Absent: lymphadenopathy - Respiratory Respiratory exam: Present: CTAB. Absent: accessory muscle use, rales, rhonchi, wheezes - Cardiovascular Cardiovascular exam: Present: diastolic murmur, +S1, +S2. Absent: gallop, rubs , systolic murmur - GI/Abdominal GI/Abdominal exam: Present: normal bowel sounds, soft, no peritoneal signs. Absent: distended, tenderness - Extremities Exam Extremities exam: Present: warm, radial pulses palpable and symmetrical. Absent : calf tenderness, cyanotic, pedal edema - Neurological Exam Neurological exam: Present: CN II-XII intact, oriented X3, no focal deficits. Absent: pronater drift, facial droop, speech deficit
[2017-02-21] MEDS ORDERED: *HR* Warfarin 3 MG TABLET PO SCH (18:00)
--- NOTE | 2017-02-22 10:42 | Electrocardiograph Report ---
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
== END 2017-02-20 19:08 | disposition home or self-care (01) | DRG 69 ==
LOC: 2NENU 13:36 → EMEROO 13:36 → 2NENU 15:27
PROVIDERS: ADMIT Internal Medicine; ATTEND Internal Medicine

== ENCOUNTER 2017-05-09 13:25 | Inpatient (IN) ==
--- NOTE | 2017-05-09 13:44 | Emergency Department Note ---
Disposition Clinical Impression: Implantable cardioverter-defibrillator lead failure Qualifiers: Encounter type: initial encounter Qualified Code(s): T82.110A - Breakdown ( mechanical) of cardiac electrode, initial encounter Disposition: Admitted As Inpatient Condition: Good [facility]: [facility]Primary Care Provider[facility] - Forms: ED Satisfaction Letter, Work/School Release Time of Disposition: 15:06 General Adult HPI - General Chief complaint: ED General Medical Stated complaint: Defib Is Alarming Time Seen by Provider: 05/09/17 13:41 Source: patient Mode of arrival: ambulatory Limitations: no limitations Nursing Notes Reviewed: Yes Vital Signs Reviewed: Yes - History of Present Illness HPI Narrative: 67-year-old male comes in because his defibrillator alarm 4 times yesterday. He states he has a [employer] defibrillator that was placed in 2005. Last interrogation was a year ago and battery was good. He states he has not had any shocks from the defibrillator. 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 Scale: 0 - Related Data Home Medications Medication Instructions Recorded Confirmed Alfuzosin HCl [Uroxatral] 10 mg PO DAILY 02/18/17 02/18/17 Aspirin Enteric Coated [Aspirin EC] 81 mg PO DAILY 02/18/17 02/18/17 Atorvastatin [Lipitor] 40 mg PO HS 02/18/17 02/18/17 Ergocalciferol (VITAMIN D2) 50,000 unit PO QWEEK 02/18/17 02/18/17 [Vitamin D2] Gabapentin [Neurontin] 700 mg PO BID 02/18/17 02/18/17 Insulin Glargine,Hum.rec.anlog 42 unit SQ QAM 02/18/17 02/18/17 [Lantus Solostar] Ipratropium [ATROVENT Inhaler] 2 puff IH BID 02/18/17 02/18/17 Losartan Potassium [Cozaar] 100 mg PO DAILY 02/18/17 02/18/17 Magnesium Hydroxide [Milk of 30 ml PO BID 02/18/17 02/18/17 Magnesia] Meclizine [Antivert] 12.5 mg PO TID PRN 02/18/17 02/18/17 Sotalol HCl [Betapace] 120 mg PO Q12H 02/18/17 02/18/17 Warfarin [Coumadin] 5 mg PO MOTUWETHFRSA 02/18/17 02/18/17 Warfarin [Coumadin] 6 mg PO CORREA 02/18/17 02/18/17 hydroCHLOROthiazide 25 mg PO DAILY 02/18/17 02/18/17 [Hydrochlorothiazide] Allergies Allergy/AdvReac Type Severity Reaction Status Date / Time acetaminophen [From Endocet] Allergy Anaphylaxis Verified 05/09/17 13:32 Oxycodone [From Endocet] Allergy Anaphylaxis Verified 05/09/17 13:32 All systems ED: reviewed and negative except as stated. Constitutional: Denies: fever, chills, weakness, weight change Eyes: Denies: eye pain, eye discharge, vision change ENT ED: Denies: ear pain, throat pain, dental pain, hearing loss, epistaxis, congestion, dysphagia Cardiovascular: Denies: chest pain, palpitations, dyspnea on exertion, edema, syncope Respiratory: Denies: cough, dyspnea, wheezes, hemoptysis, stridor Gastrointestinal: Denies: abdominal pain, nausea, vomiting, diarrhea, constipation, hematemesis, melena, hematochezia Genitourinary: Denies: urgency, dysuria, frequency, hematuria Musculoskeletal: Denies: back pain, neck pain, arthralgia, myalgia Integumentary: Denies: rash, abrasion, lesions Neurological: Denies: headache, weakness, numbness, paresthesias, confusion, abnormal gait, vertigo Psychiatric: Denies: anxiety, depression, suicidal thoughts, homicidal thoughts , auditory hallucinations, visual hallucinations Endocrine: Denies: fatigue Hematological/Lymphatic: Denies: easy bleeding, easy bruising Allergic/Immunologic: Denies: facial swelling, urticaria Past Medical History - Past Medical History Medical history: Reports: arthritis, asthma, atrial fibrillation, cardiomyopathy , COPD, DVT, diabetes, fibromyalgia, GERD, hyperlipidemia, hypertension, pulmonary embolus Surgical history: Reports: appendectomy, herniorrhaphy Psychiatric history: Reports: no psych history - Social History Smoking Status: Current every day smoker Smokeless Tobacco Status: No Alcohol use: Reports: occasionally Drug use: Reports: none Physical Exam - General Limitations: no limitations General appearance: alert, in no apparent distress - Head Head exam: atraumatic, normocephalic, normal inspection - Eye Eye exam: Present: normal appearance, PERRL, EOMI - ENT ENT exam: normal exam, normal oropharynx, mucous membranes moist - Neck Neck exam: Present: normal inspection, full ROM, trachea midline - Chest Chest inspection: Present: normal inspection, symmetric chest wall rise - Respiratory Respiratory exam: Present: normal lung sounds bilaterally - Cardiovascular Cardiovascular exam: Present: regular rate, normal rhythm, normal heart sounds - Abdominal Exam Abdominal exam: Present: soft, Non-Tender. Absent: tenderness, distention, guarding, rebound, rigidity - Extremities Exam Extremities exam: Present: normal inspection, full ROM. Absent: tenderness, pedal edema - Expanded Lower Extremity Exam Neurovascular/Tendon exam: Absent: motor deficit, sensory deficit, tendon deficit Gait: observed and normal - Back Exam Back exam: Present: normal inspection, full ROM. Absent: tenderness - Neurological Exam Neurological exam: Present: alert, oriented X3 - Psychiatric Psychiatric exam: Present: normal affect, normal mood - Skin Skin exam: Present: warm, dry, intact, normal color Course - Reevaluation(s) Reevaluation #1: 67-year-old with pacemaker defibrillator that is alarming. Evaluation by [employer] indicate a possible lead issue. Patient will be admitted for further evaluation and treatment. Time: 15:05 - Consultations Consultation #1: [employer] ambulatory service representative called back with an analysis of the interrogation. The patient had one out of range impedance reading. The patient also had short interval encounter abnormalities with 374 episodes since January with most of them being recently. Outputting these 2 abnormal findings together indicates a possible lead problem. Time: 14:02 Consultation #2: Discussed with , admit to the hospital stay will see in consult. Time: 14:30 Consultation #3: Discussed with Dr. Lindsey, admit Time: 15:05 Vital Signs Temperature 97.9 F 05/09/17 13:26 Pulse Rate 80 05/09/17 13:26 Respiratory Rate 16 05/09/17 13:26 Blood Pressure 125/81 05/09/17 13:26 O2 Sat by Pulse Oximetry 98 05/09/17 13:26 Temperature 97.9 F 05/09/17 13:26 Pulse Rate 80 05/09/17 13:26 Respiratory Rate 16 05/09/17 13:26 Blood Pressure 125/81 05/09/17 13:26 O2 Sat by Pulse Oximetry 98 05/09/17 13:26 Oxygen Delivery Oxygen Delivery Room Air Medical Decision Making - Lab Data Lab results reviewed: Yes I reviewed the patient's lab results. Result diagrams: 05/09/17 13:51 05/09/17 13:51 Lab Results 05/09/17 05/09/17 05/09/17 Range/Units 13:51 13:51 13:51 WBC 5.9 (4.3-11.1) K/mcL RBC 5.23 (4.19-5.50) M/mcL Hgb 16.3 (12.9-16.9) g/dL Hct 47.7 (37.5-50.1) % MCV 91.2 (83.0-100.0) fL MCH 31.2 (28.0-33.3) pg MCHC 34.2 (31.6-35.5) g/dL RDW 12.8 (11.5-14.5) % Plt Count 219 (140-400) K/mcL MPV 10.1 (9.4-12.4) fL Immature Gran % 0.3 (0-4) % Seg Neutrophils % 44.4 % Lymphocytes % 36.8 % Monocytes % 12.5 % Eosinophils % 5.7 % Basophils % 0.3 % Neutrophils # 2.6 (1.6-8.9) K/mcL Lymphocytes # 2.2 (0.6-4.6) K/mcL Monocytes # 0.7 (0.0-1.3) K/mcL Eosinophils # 0.3 (0.0-0.6) K/mcL Basophils # 0.0 (0.0-0.2) K/mcL Sodium 137 (136-145) mEq/L Potassium 4.1 (3.5-5.1) mEq/L Chloride 105 (98-107) mEq/L Carbon Dioxide 28 (23-29) mEq/L BUN 17 (8-23) mg/dL Creatinine 1.21 (0.70-1.30) mg/dL Est GFR ( Amer) > 60 (> 60) Est GFR (Non-Af Amer) 60 (> 60) BUN/Creatinine Ratio 14 (6-26) Glucose 201 H (70-105) mg/dL Calculated Osmolality 291 (280-300) Calcium 9.4 (8.6-10.3) mg/dL Troponin I < 0.03 (< 0.04) ng/mL - Radiology Data Radiology results reviewed: Yes I reviewed the patient's radiology results. Chest X-Ray 05/09/17 13:41 IMPRESSION: No acute cardiopulmonary disease. D/ / Orquidea Morgan MD / Orquidea Morgan MD Interpreting Provider: Orquidea Morgan MD
[2017-05-09 13:59] LABS: Basophils % 0.3 %; Eosinophils # 0.3 K/mcL (0.0-0.6); Eosinophils % 5.7 %; Hematocrit 47.7 % (37.5-50.1); Hemoglobin 16.3 g/dL (12.9-16.9); Immature Granulocytes % 0.3 % (0-4); Lymphocytes # 2.2 K/mcL (0.6-4.6); Lymphocytes % 36.8 %; Mean Corpuscular HGB Conc 34.2 g/dL (31.6-35.5); Mean Corpuscular Hemoglobin 31.2 pg (28.0-33.3); Mean Corpuscular Volume 91.2 fL (83.0-100.0); Mean Platelet Volume 10.1 fL (9.4-12.4); Monocytes # 0.7 K/mcL (0.0-1.3); Monocytes % 12.5 %; Neutrophils # 2.6 K/mcL (1.6-8.9); Platelet Count 219 K/mcL (140-400); Red Blood Count 5.23 M/mcL (4.19-5.50); Red Cell Distribution Width 12.8 % (11.5-14.5); Segmented Neutrophils % 44.4 %
[2017-05-09 14:14] LABS: BUN/Creatinine Ratio 14 (6-26); Blood Urea Nitrogen 17 mg/dL (8-23); Calcium 9.4 mg/dL (8.6-10.3); Carbon Dioxide 28 mEq/L (23-29); Chloride 105 mEq/L (98-107); Glucose 201 mg/dL (70-105); Osmolality,Calculated 291 (280-300); Potassium 4.1 mEq/L (3.5-5.1); Sodium 137 mEq/L (136-145); eGFR For African Americans > 60 (> 60); eGFR For Non-African Americans 60 (> 60)
[2017-05-09] MEDS ORDERED: Naloxone 0.4 MG/ML INJ IVP PRN (15:34)
--- NOTE | 2017-05-09 15:47 | Internal Med History&Physical ---
Date of Encounter: 05/09/17 Time of Encounter: 15:41 Assessment and Plan (1) Implantable cardioverter-defibrillator lead failure Current visit: Yes Status: Acute Experienced a relator alarm on four different occasions yesterday Denies any shocks. Concern for lead failure per interrogation report He has experienced 374 events since January with majority of these lesions being the last couple of weeks He is currently sinus bradycardia and stable. No electrolytes abnormalities noted -Consult cardiology-Dr. Huff has been called by the ED physician and cardiology has agreed to consult. Thank you for your consult -Continuous telemetry -Monitor troponin -Continue home medications -CBC, BMP in the am Qualifiers: Encounter type: initial encounter Qualified Code(s): T82.110A - Breakdown ( mechanical) of cardiac electrode, initial encounter (2) Atrial fibrillation Current visit: Yes Status: Acute h/o, Sinus bradycardia today, continue Coumadin per PT Qualifiers: Atrial fibrillation type: unspecified Qualified Code(s): I48.91 - Unspecified atrial fibrillation (3) Bradycardia Current visit: Yes Status: Acute Asymptomatic, chronic, stable (4) Diabetes mellitus Current visit: Yes Status: Acute Continue basal insulin and add sliding scale insulin coverage Qualifiers: Diabetes mellitus type: type 2 Diabetes mellitus complication status: with unspecified complications Diabetes mellitus jail insulin use: unspecified meterman insulin use status Qualified Code(s): E11.8 - Type 2 diabetes mellitus with unspecified complications (5) Hypertension Current visit: Yes Status: Acute stable, continue antiHTN meds Qualifiers: Hypertension type: unspecified Qualified Code(s): I10 - Essential (primary ) hypertension (6) DVT prophylaxis Current visit: Yes Status: Acute Continue coumadin per PT dosing Internal Medicine - H&P: HPI Chief complaint: Defibrillator alarm 4x yesterday Admitted From: Home Plans for Post Hospital Care: Home History of present illness: Mr. Charles is a 67 year old male with a PMH of AICD, arthritis, asthma, a-fib, cardiomyopathy, COPD, DVT, DM, Fibromyalgia, GERD, HLD, HTN and PE. He presents today after noticing his defibrillator firing on four different occasions yesterday. He denies experiencing any tachycardia, palpitations, or arrhythmias. He denies an chest pain or shortness of breath. His last interrogation was one year ago. While in the ED his AICD was again interrogated and found that he had experienced 370 for short interval arrhythmic events since January, with most of his events being in the last couple of weeks. It appears that there may be an issue with one of his leads. He is being admitted for further monitoring and evaluation. Past Med Surg Social Fam HX - Past Medical History Medical history: arthritis, asthma, atrial fibrillation, cardiomyopathy, COPD, DVT, diabetes, fibromyalgia, GERD, hyperlipidemia, hypertension, pulmonary embolus Psychiatric history: no psych history - Past Surgical History Surgical History: appendectomy, herniorrhaphy - Social History Smoking Status: Current every day smoker Smokeless Tobacco Status: No Alcohol use: occasionally Drug use: none - Family History Mother Living Status: Still Living Father Living Status: Internal Medicine - H&P: Meds Alfuzosin HCl [Uroxatral] 10 mg PO DAILY 02/18/17 [History] Aspirin Enteric Coated [Aspirin EC] 81 mg PO DAILY 02/18/17 [History] Atorvastatin [Lipitor] 40 mg PO HS 02/18/17 [History] Ergocalciferol (VITAMIN D2) [Vitamin D2] 50,000 unit PO QWEEK 02/18/17 [History] Gabapentin [Neurontin] 700 mg PO BID 02/18/17 [History] Insulin Glargine,Hum.rec.anlog [Lantus Solostar] 42 unit SQ QAM 02/18/17 [ History] Ipratropium [ATROVENT Inhaler] 2 puff IH BID 02/18/17 [History] Losartan Potassium [Cozaar] 100 mg PO DAILY 02/18/17 [History] Magnesium Hydroxide [Milk of Magnesia] 30 ml PO BID 02/18/17 [History] Meclizine [Antivert] 12.5 mg PO TID PRN 02/18/17 [History] Sotalol HCl [Betapace] 120 mg PO Q12H 02/18/17 [History] Warfarin [Coumadin] 5 mg PO MOTUWETHFRSA 02/18/17 [History] Warfarin [Coumadin] 6 mg PO CORREA 02/18/17 [History] hydroCHLOROthiazide [Hydrochlorothiazide] 25 mg PO DAILY 02/18/17 [History] 3 Allergy/AdvReac Type Severity Reaction Status Date / Time acetaminophen [From Endocet] Allergy Anaphylaxis Verified 05/09/17 13:32 Oxycodone [From Endocet] Allergy Anaphylaxis Verified 05/09/17 13:32 All Systems PM: A 10-system review of systems was performed and is negative for pertinent findings except as documented above in the HPI. - Constitutional Constitutional: no chills, no fever(s), no night sweats - EENT Eyes: no change in vision, no discharge, no pain, no photophobia Ears: no ear discharge, no ear pain, no tinnitus Nose, mouth and throat: no dysphagia, no nasal discharge, no neck pain, no sore throat - Cardiovascular Cardiovascular ROS IM: no chest pain, no diaphoresis, no dyspnea, no lightheadedness, no palpitations, no syncope - Respiratory Respiratory: no cough, no dyspnea, no wheezing, no excessive phlegm production - Gastrointestinal Gastrointestinal: no abdominal pain, no diarrhea, no hematemesis, no hematochezia, no melena, no nausea, no vomiting - Musculoskeletal Musculoskeletal ROS IM: no numbness, no tingling - Integumentary Integumentary IM: no rash, no unusual bruising - Neurological Neurological ROS: no confusion, no convulsions, no focal weakness, no numbness, no tingling, no tremor(s) - Hematologic/Lymphatic Hematologic/Lymphatic: no easy bruising - Constitutional Vitals: Temp Pulse Resp BP Pulse Ox 97.9 F 80 16 125/81 98 05/09/17 13:26 05/09/17 13:26 05/09/17 13:26 05/09/17 13:26 05/09/17 13:26 General appearance: Present: cooperative, A&O X 3, no acute distress, answers questions appropriately - Head Head exam: Present: atraumatic, normocephalic - Eye Eye exam: Present: PERRL, conjuntiva pink, sclera anicteric Pupils: Present: PERRL - Neck Neck exam general surgery: Present: supple, trachea midline. Absent: lymphadenopathy - Respiratory Respiratory exam: Present: CTAB. Absent: accessory muscle use, rales, rhonchi, wheezes - Cardiovascular Cardiovascular exam: Present: RRR, +S1, +S2. Absent: diastolic murmur, gallop, rubs, systolic murmur - GI/Abdominal GI/Abdominal exam: Present: normal bowel sounds, soft, no peritoneal signs. Absent: distended, tenderness - Extremities Exam Extremities exam: Present: warm, radial pulses palpable and symmetrical. Absent : calf tenderness, cyanotic, pedal edema - Neurological Exam Neurological exam: Present: CN II-XII intact, oriented X3, no focal deficits. Absent: pronater drift, facial droop, speech deficit - Skin Skin exam: Present: dry, intact Internal Med - H&P Results - Labs CBC & Chem 7: 05/09/17 13:51 05/09/17 13:51 Labs: Short CBC 05/09/17 Range/Units 13:51 WBC 5.9 (4.3-11.1) K/mcL Hgb 16.3 (12.9-16.9) g/dL Hct 47.7 (37.5-50.1) % Plt Count 219 (140-400) K/mcL Neutrophils # 2.6 (1.6-8.9) K/mcL BMP 05/09/17 13:51 Sodium 137 Potassium 4.1 Chloride 105 Carbon Dioxide 28 BUN 17 Creatinine 1.21 Glucose 201 H Calcium 9.4 Cardiac Enzymes 05/09/17 Range/Units 13:51 Troponin I < 0.03 (< 0.04) ng/mL - EKG Data -: EKG Interpreted by Myself EKG shows normal: sinus rhythm Rate: bradycardia - EKG Data Prior EKG available for review: yes When compared to previous EKG: there is no significant change - Impressions ITS Impressions Chest X-Ray 05/09/17 13:41 IMPRESSION: No acute cardiopulmonary disease. D/ / Orquidea Morgan MD / Orquidea Morgan MD Interpreting Provider: Orquidea Morgan MD
[2017-05-09] MEDS ORDERED: *HR* Dextrose 50 % in Water (Syg) 50 ML SYRINGE IVP PRN (16:03)
[2017-05-09] MEDS ORDERED: D5% in Water 1,000 ML IVC PRN (16:03)
[2017-05-09] MEDS ORDERED: Dextrose Gel 15 GM/37.5 ML TUBE PO PRN ×2 (16:03)
[2017-05-09 16:32] LABS: INR 3.2; Prothrombin Time 35.7 Seconds (9.4-12.1)
[2017-05-09] MEDS: Insulin LISPRO 300 UNITS/3 ML VIAL SQ SCH (17:36)
[2017-05-09] MEDS ORDERED: Warfarin perPT PO PRN (18:00)
[2017-05-09] MEDS ORDERED: Insulin LISPRO 300 UNITS/3 ML VIAL SQ SCH (21:00)
[2017-05-10 05:31] LABS: BUN/Creatinine Ratio 18 (6-26); Blood Urea Nitrogen 19 mg/dL (8-23); Calcium 9.3 mg/dL (8.6-10.3); Carbon Dioxide 25 mEq/L (23-29); Chloride 108 mEq/L (98-107); Glucose 111 mg/dL (70-105); Osmolality,Calculated 289 (280-300); Potassium 3.6 mEq/L (3.5-5.1); Sodium 138 mEq/L (136-145); eGFR For African Americans > 60 (> 60); eGFR For Non-African Americans > 60 (> 60)
[2017-05-10 07:13] LABS: Hematocrit 47.4 % (37.5-50.1); Mean Corpuscular HGB Conc 33.5 g/dL (31.6-35.5); Mean Corpuscular Hemoglobin 30.8 pg (28.0-33.3); Platelet Count 178 K/mcL (140-400); Red Blood Count 5.16 M/mcL (4.19-5.50); Red Cell Distribution Width 12.7 % (11.5-14.5)
[2017-05-10 07:16] LABS: Hemoglobin 15.9 g/dL (12.9-16.9); Mean Corpuscular Volume 91.9 fL (83.0-100.0)
[2017-05-10 07:34] LABS: INR 2.3; Prothrombin Time 25.7 Seconds (9.4-12.1)
[2017-05-10] MEDS: Insulin LISPRO 300 UNITS/3 ML VIAL SQ SCH ×2 (07:39→11:22)
[2017-05-10] MEDS ORDERED: hydroCHLOROthiazide 25 MG TABLET PO SCH (09:00)
[2017-05-10] MEDS ORDERED: MOM Conc 10 ML UD.LIQ PO SCH (09:00)
[2017-05-10] MEDS ORDERED: Insulin DETEMIR 100 UNIT/ML X5UNITS SQ SCH (09:00)
[2017-05-10] MEDS ORDERED: Aspirin Enteric Coated 81 MG Tablet PO SCH (09:00)
[2017-05-10] MEDS ORDERED: Gabapentin 100 MG CAPSULE PO SCH (09:00)
--- NOTE | 2017-05-10 09:42 | Electrophysiology Consult Note ---
Addendum entered and electronically signed by Marina Valenzuela CNP 05/10/17 13: 23: [employer] device check completed, reviewed plan with Dr. Duque. No concern for lead fracture at this time. Will coordinate device check in 1 month at [facility]. No further recommendations from Cardiology. Original Note: <Marina Valenzuela - Last Filed: 05/10/17 10:24> Date of Encounter: 05/10/17 Time of Encounter: 09:40 Assessment and Plan (1) ICD (implantable cardioverter-defibrillator) in place Status: Acute Hx of vfib arrest in 2004 s/p ICD placement--at [facility] [place]. Patient presented with ICD alarming since Wednesday, denies ICD shock/fire. Device check demonstrated concern for possible RV lead fracture. Reviewed check with Dr. Maykel Duque, unable to determine if lead is fractured. [employer] rep contacted and will be down to interrogate device. Further recommendations to follow. Of note, if lead is fractured, patient will need transferred to tertiary center for lead extraction. (2) PAF (paroxysmal atrial fibrillation) Status: Acute Hx of PAF, currently on sotalol. Has been on amiodarone, multaq, and rythmol in the past. ECG shows SR HR 59 QT/QTc 422, 421 ms. Telemetry review: avg HR=68 SR. Occasional PVC. No PAF noted. Continue coumadin for AC, INR 2-3. Recommend pharmacy to dose coumadin as inpatient. Discussion w patient/family: The assessment and plan as outlined above was discussed with the patient and/or family members who expressed understanding and agreement. All questions were answered. Thank you for involving us in the care of your patient. Please call with any questions. The patient will be discussed and reviewed with Dr. Maykel Duque, changes to be made accordingly. History of Present Illness Consult date: 05/10/17 Requesting physician: Manny Lopez Consult reason: AICD alarming Chief complaint: AICD alarming History of present illness: Mr. Charles is a 67 year old male with PMHx significant for DMII, smoker, HTN, COPD, PE/DVT, PAF (coumadin,sotalol), and hx of Vfib arrest s/p ICD who presented to the ED with complaints of his ICD alarming since Wednesday. He reports ICD alarmed x2 on Wednesday and again on Wednesday. Denies ICD shock/fire. He states he has been under increased stress recently, otherwise no new symptoms. Reports compliance with medications. He reports shortness of breath with exertion, however is unchanged in quality. Reports [facility]. 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 Recent testing: TTE 01/2017: EF 60%, mild LVDD, no significant valvular disease, normal wall motion. Past Med Surg Social Fam HX - Past Medical History Attestation: Yes The following information was validated with the patient. Source: patient, old records reviewed Medical history: arthritis, asthma, atrial fibrillation, cardiomyopathy, COPD, DVT, diabetes, fibromyalgia, GERD, hyperlipidemia, hypertension, pulmonary embolus Psychiatric history: no psych history - Past Surgical History Surgical History: appendectomy, herniorrhaphy, AICD - Social History Smoking Status: Current every day smoker Smokeless Tobacco Status: No Alcohol use: occasionally Drug use: none - Family History Mother Living Status: Still Living Father Living Status: Medications and Allergies Alfuzosin HCl [Uroxatral] 10 mg PO DAILY 02/18/17 [History] Aspirin Enteric Coated [Aspirin EC] 81 mg PO DAILY 02/18/17 [History] Atorvastatin [Lipitor] 40 mg PO HS 02/18/17 [History] Ergocalciferol (VITAMIN D2) [Vitamin D2] 50,000 unit PO QWEEK 02/18/17 [History] Gabapentin [Neurontin] 700 mg PO BID 02/18/17 [History] Insulin Glargine,Hum.rec.anlog [Lantus Solostar] 42 unit SQ QAM 02/18/17 [ History] Ipratropium [ATROVENT Inhaler] 2 puff IH BID 02/18/17 [History] Losartan Potassium [Cozaar] 100 mg PO DAILY 02/18/17 [History] Magnesium Hydroxide [Milk of Magnesia] 30 ml PO BID 02/18/17 [History] Meclizine [Antivert] 12.5 mg PO TID PRN 02/18/17 [History] Sotalol HCl [Betapace] 120 mg PO Q12H 02/18/17 [History] Warfarin [Coumadin] 5 mg PO MOTUWETHFRSA 02/18/17 [History] Warfarin [Coumadin] 6 mg PO CORREA 02/18/17 [History] hydroCHLOROthiazide [Hydrochlorothiazide] 25 mg PO DAILY 02/18/17 [History] Warfarin [Coumadin] 5 mg PO DAILY@1800 tablet 05/10/17 [Rx] 3 Allergy/AdvReac Type Severity Reaction Status Date / Time acetaminophen [From Endocet] Allergy Anaphylaxis Verified 05/09/17 13:32 Oxycodone [From Endocet] Allergy Anaphylaxis Verified 05/09/17 13:32 All Systems Review: A 10-system review of systems was performed and is negative for pertinent findings except as documented above in the HPI. - Cardiovascular Cardiovascular: as per HPI Physical Examination Vital Signs, Last 4 Hours Temp Pulse Resp BP Pulse Ox 05/10/17 09:08 17 95 05/10/17 07:02 98.2 F 78 17 141/84 95 General: Conversant, No Apparent Distress HEENT: Atraumatic, Normocephaly, Mucus Membranes Moist Neck: No JVD, Normal carotid pulses Cardiac: Reg Rate and Rhythm, Normal S1 and S2, No Murmur Lungs: Normal Breath Sounds, No Wheeze, Rales, Rhonchi Neuro: Alert and responsive, No focal deficits noted Abdomen: Soft, Non-Tender Skin: No rashes noted on visualized skin Musculoskeletal: No Chest Wall Tenderness Extremities: No Clubbing, No Cyanosis, No Edema, Normal Pulses Results 05/10/17 07:06 05/10/17 04:21 Lab Results 05/09/17 05/10/17 05/10/17 19:57 04:21 07:06 WBC Hgb Hct Plt Count INR 2.3 Sodium 138 Potassium 3.6 Chloride 108 H Carbon Dioxide 25 BUN 19 Creatinine 1.03 Glucose 111 H Calcium 9.3 Troponin I < 0.03 05/10/17 07:06 WBC 6.6 Hgb 15.9 Hct 47.4 Plt Count 178 INR Sodium Potassium Chloride Carbon Dioxide BUN Creatinine Glucose Calcium Troponin I Active Medications Aspirin (Aspirin Ec) 81 mg PO DAILY HERACLIO Stop: 11/09/17 09:01 Last Admin: 05/10/17 09:09 Dose: 81 mg Atorvastatin Calcium (Lipitor) 40 mg PO HS HERACLIO Stop: 11/09/17 21:01 Dextrose/Water (Dextrose 50% (Syg)) 25 ml IVP AD PRN PRN Reason: Hypoglycemia Stop: 11/08/17 16:04 Ergocalciferol (Drisdol (50,000 Unit)) 50,000 unit PO QWEEK [facility] Stop: 11/08/17 21:31 Last Admin: 05/09/17 21:47 Dose: 50,000 unit Gabapentin 300 mg/ Gabapentin (400 mg) 700 mg PO BID [facility] Stop: 11/09/17 09:01 Last Admin: 05/10/17 09:08 Dose: 700 mg Glucagon (Glucagen) 1 mg IM ONCE PRN PRN Reason: Hypoglycemia Stop: 11/08/17 16:04 Glucose (Gluctose) 15 gm PO ONCE PRN PRN Reason: Hypoglycemia Stop: 11/08/17 16:04 Glucose (Gluctose) 30 gm PO ONCE PRN PRN Reason: Hypoglycemia Stop: 11/08/17 16:04 Hydrochlorothiazide (Hydrochlorothiazide) 25 mg PO DAILY HERACLIO PRN Reason: Protocol Stop: 11/09/17 09:01 Last Admin: 05/10/17 09:09 Dose: 25 mg Dextrose (Dextrose 5%) 1,000 mls @ 100 mls/hr IVC .Q10H PRN PRN Reason: HYPOGLYCEMIA Stop: 11/08/17 16:04 Insulin Detemir (Levemir) 42 unit SQ QAM [facility] Stop: 11/09/17 09:01 Insulin Human Lispro (Humalog) 0 units SQ HS [facility] PRN Reason: Protocol Stop: 11/08/17 21:01 Last Admin: 05/09/17 21:15 Dose: Not Given Insulin Human Lispro (Humalog) 0 units SQ TIDAC [facility] PRN Reason: Protocol Stop: 11/08/17 16:31 Last Admin: 05/10/17 07:39 Dose: Not Given Ipratropium [place] (Atrovent Inhaler) 2 puff IH BIDR [facility] Stop: 11/09/17 10:01 Last Admin: 05/10/17 09:05 Dose: 2 puff Losartan Potassium (Cozaar) 100 mg PO DAILY [facility] Stop: 11/09/17 09:01 Last Admin: 05/10/17 09:09 Dose: 100 mg Magnesium Hydroxide (Milk Of Magnesia Conc) 10 ml PO BID [facility] Stop: 11/09/17 09:01 Last Admin: 05/10/17 09:09 Dose: Not Given Meclizine HCl (Antivert) 12.5 mg PO TID PRN PRN Reason: DIZZINESS Stop: 11/08/17 21:18 Naloxone HCl (Narcan) 0.4 mg IVP Q2MIN PRN PRN Reason: SEE COMMENTS Stop: 11/08/17 15:35 Sotalol HCl (Betapace) 120 mg PO Q12H HERACLIO Stop: 11/08/17 21:31 Last Admin: 05/10/17 09:09 Dose: 120 mg Tamsulosin HCl (Flomax) 0.4 mg PO HS [facility] Stop: 11/09/17 21:01 Warfarin Sodium (Coumadin Perpt) 1 each PO DAILY@1800 PRN PRN Reason: SEE COMMENTS Stop: 11/08/17 18:01 Warfarin Sodium (Coumadin) 5 mg PO DAILY@1800 HERACLIO Stop: 11/09/17 18:01 - Imaging and Cardiology Echo: report reviewed - EKG Interpretation EKG results cardiology: personally reviewed Consult Discharge Plan - Plan Instructions: Atrial Fibrillation (DC), Diabetes Mellitus Type 2 in Adults (DC) , Chronic Hypertension (DC) Additional Instructions: Please follow up with her primary care provider at the next available appointment. Please follow-up with cardiology in the pacer clinic within the next month. Please contact cardiology, your primary care physician or return to the emergency department if you have any other concerns he or defibrillator. Referrals: Cardiology [facility] [Provider Group] [facility],PC[facility] [Primary Care Provider] - 05/14/17 2:45 pm <Maykel Duque - Last Filed: 05/10/17 17:14> Date of Encounter: 05/10/17 - Attending Attestation I have personally performed a face to face evaluation on this patient. I have reviewed and agree with the care plan. History and Exam by me shows: Some farfield noted on RV lead but imepedence and pacing thresholds stable. No evidence of lead fracture, pt. should be established at our device clinic for close follow up. Assessment and Plan Discussion w patient/family: The assessment and plan as outlined above was discussed with the patient and/or family members who expressed understanding and agreement. All questions were answered. Thank you for involving us in the care of your patient. Please call with any questions. History of Present Illness History of present illness: Mr. Charles is a 67 year old male All Systems Review: A 10-system review of systems was performed and is negative for pertinent findings except as documented above in the HPI. Results 05/10/17 07:06 05/10/17 04:21 Lab Results 05/09/17 05/10/17 05/10/17 19:57 04:21 07:06 WBC Hgb Hct Plt Count INR 2.3 Sodium 138 Potassium 3.6 Chloride 108 H Carbon Dioxide 25 BUN 19 Creatinine 1.03 Glucose 111 H Calcium 9.3 Troponin I < 0.03 05/10/17 07:06 WBC 6.6 Hgb 15.9 Hct 47.4 Plt Count 178 INR Sodium Potassium Chloride Carbon Dioxide BUN Creatinine Glucose Calcium Troponin I
[2017-05-10] MEDS ORDERED: Ipratropium 1 PUFF INHALER IH SCH (10:00)
[2017-05-10 11:08] VITALS: BP 118/83
--- NOTE | 2017-05-10 13:37 | Discharge Summary ---
<Adrián Romero - Last Filed: 05/10/17 13:33> Date of Encounter: 05/10/17 Time of Encounter: 13:33 - Discharge Diagnosis (1) ICD (implantable cardioverter-defibrillator) in place Priority: Primary Status: Acute (2) Bradycardia Priority: Secondary Status: Chronic (3) Hypertension Priority: Secondary Status: Chronic Qualifiers: Hypertension type: unspecified Qualified Code(s): I10 - Essential (primary ) hypertension (4) Diabetes mellitus Priority: Secondary Status: Chronic Qualifiers: Diabetes mellitus type: type 2 Diabetes mellitus complication status: with unspecified complications Diabetes mellitus manager long term care insulin use: unspecified care home insulin use status Qualified Code(s): E11.8 - Type 2 diabetes mellitus with unspecified complications; Z79.4 - USP (current) use of insulin; Z79.4 - extermination supervisor (current) use of insulin; Z79.4 - USP ( current) use of insulin; Z79.4 - USP (current) use of insulin (5) Atrial fibrillation Priority: Secondary Status: Chronic Qualifiers: Atrial fibrillation type: unspecified Qualified Code(s): I48.91 - Unspecified atrial fibrillation - Discharge Medications Home Medications: Alfuzosin HCl [Uroxatral] 10 mg PO DAILY 02/18/17 [History] Aspirin Enteric Coated [Aspirin EC] 81 mg PO DAILY 02/18/17 [History] Atorvastatin [Lipitor] 40 mg PO HS 02/18/17 [History] Ergocalciferol (VITAMIN D2) [Vitamin D2] 50,000 unit PO QWEEK 02/18/17 [History] Gabapentin [Neurontin] 700 mg PO BID 02/18/17 [History] Insulin Glargine,Hum.rec.anlog [Lantus Solostar] 42 unit SQ QAM 02/18/17 [ History] Ipratropium [ATROVENT Inhaler] 2 puff IH BID 02/18/17 [History] Losartan Potassium [Cozaar] 100 mg PO DAILY 02/18/17 [History] Magnesium Hydroxide [Milk of Magnesia] 30 ml PO BID 02/18/17 [History] Meclizine [Antivert] 12.5 mg PO TID PRN 02/18/17 [History] Sotalol HCl [Betapace] 120 mg PO Q12H 02/18/17 [History] Warfarin [Coumadin] 5 mg PO MOTUWETHFRSA 02/18/17 [History] Warfarin [Coumadin] 6 mg PO CORREA 02/18/17 [History] hydroCHLOROthiazide [Hydrochlorothiazide] 25 mg PO DAILY 02/18/17 [History] Warfarin [Coumadin] 5 mg PO DAILY@1800 tablet 05/10/17 [Rx] Allergies/Adverse Reactions: 3 Allergy/AdvReac Type Severity Reaction Status Date / Time acetaminophen [From Endocet] Allergy Anaphylaxis Verified 05/09/17 13:32 Oxycodone [From Endocet] Allergy Anaphylaxis Verified 05/09/17 13:32 Date of admission: 05/09/17 17:17 Primary care physician: PCP RIGOBERTO Consults: 05/09/17 17:27 Consult to Nutrition [CONS] Routine Comment: Consulting Provider: NUTRITION Reason for Dietary Consult: MST Score 05/10/17 09:43 Consult to Electrophysiology (EP) [CONS] Routine Consulting Provider: Electrophysiology Anu Reason for Consult: ICD alarming Time Notified: 09:43 Call Completed: Yes 05/10/17 11:23 Consult to [employer] [CONS] Routine Reason for SW Consult: Possible transfer Inpatient [place] Defibrillator lead issue Discharging clinician: Adrián Romero Anticipated date of discharge: 05/10/17 - Patient Status Disposition: Home, Self-Care Condition: Good Overall status at discharge: patient is back to baseline - Discharge Instructions Instructions: Atrial Fibrillation (DC), Diabetes Mellitus Type 2 in Adults (DC) , Chronic Hypertension (DC) Follow Up With: Cardiology An[facility] [Provider Group] [place],PCP [Primary Care Provider] - 05/14/17 2:45 pm Additional Instructions: Please follow up with her primary care provider at the next available appointment. Please follow-up with cardiology in the pacer clinic within the next month. Please contact cardiology, your primary care physician or return to the emergency department if you have any other concerns he or defibrillator. - Diet and Activity Activity: increase activity as tolerated Diet: advance to your usual diet Interval History: Patient states that he is doing well today and there have been no alarms from his defibrillator today. Patient denies any chest pain, shortness of breath or palpitations. Patient states that he feels completely normal at this time. States that he was never symptomatic just was concerned due to the alarm going off on his defibrillator. Hospital course: Mr. Charles is a 67 year old male that presented to the emergency department for concern of the alarm going off on his defibrillator. He states that he had 2 episodes 2 days ago where the alarm on his crib later was going off and 2 episodes yesterday of the alarm going off. Patient states that he was never symptomatically at this time and never had a shock from his defibrillator. Today the patient states that he is still asymptomatic without any chest pain, shortness of breath or palpitations. There was concern for possible lead fracture and cardiology requested that the rep from [email or web address] come and interrogate the unit again and after further evaluation they feel that the patient can be discharged home with recommendation to follow-up in the pacer clinic in one month. The patient is stable and appropriate for discharge and will be discharged home with recommendation to follow up as an outpatient. - Time Spent with Patient Total time spent providing and/or coordinating discharge services: - Constitutional Vitals: Temp Pulse Resp BP Pulse Ox 97.4 F L 81 16 118/83 97 05/10/17 11:03 05/10/17 11:03 05/10/17 11:03 05/10/17 11:03 05/10/17 11:03 General appearance: Present: cooperative, A&O X 3, no acute distress, answers questions appropriately - Head Head exam: Present: atraumatic, normocephalic - Neck Neck exam general surgery: Present: full ROM, supple, trachea midline - Respiratory Respiratory exam: Present: CTAB. Absent: accessory muscle use, rales, rhonchi, wheezes - Cardiovascular Cardiovascular exam: Present: RRR, +S1, +S2. Absent: diastolic murmur, gallop, rubs, systolic murmur - GI/Abdominal GI/Abdominal exam: Present: normal bowel sounds, soft, no peritoneal signs. Absent: distended, tenderness - Extremities Exam Extremities exam: Present: warm. Absent: pedal edema - Neurological Exam Neurological exam: Present: oriented X3, no focal deficits. Absent: facial droop, speech deficit - Psychiatric Psychiatric exam: Present: normal affect, normal mood - Skin Skin exam: Present: dry, intact, warm <Sylvain Stuart - Last Filed: 05/10/17 15:36> Date of Encounter: 05/10/17 - Discharge Diagnosis (1) Implantable cardioverter-defibrillator lead failure Priority: Primary Status: Ruled-out Qualifiers: Encounter type: subsequent encounter Qualified Code(s): T82.110D - Breakdown (mechanical) of cardiac electrode, subsequent encounter (2) PAF (paroxysmal atrial fibrillation) Priority: Secondary Status: Chronic (3) Hypertension Status: Chronic Qualifiers: Hypertension type: essential hypertension Qualified Code(s): I10 - Essential (primary) hypertension (4) Diabetes mellitus Status: Chronic Qualifiers: Diabetes mellitus type: type 2 Diabetes mellitus complication status: without complication Diabetes mellitus care home insulin use: with manager long term care use Qualified Code(s): E11.9 - Type 2 diabetes mellitus without complications ; Z79.4 - extermination supervisor (current) use of insulin; Z79.4 - USP (current) use of insulin; Z79.4 - USP (current) use of insulin; Z79.4 - extermination supervisor ( current) use of insulin (5) Tobacco abuse Priority: Secondary Status: Chronic Date of admission: 05/09/17 17:17 Primary care physician: PCP [place] Consults: 05/09/17 17:27 Consult to Nutrition [CONS] Routine Comment: Consulting Provider: NUTRITION Reason for Dietary Consult: MST Score 05/10/17 09:43 Consult to Electrophysiology (EP) [CONS] Routine Consulting Provider: Electrophysiology Anu Reason for Consult: ICD alarming Time Notified: 09:43 Call Completed: Yes 05/10/17 11:23 Consult to [employer] [CONS] Routine Reason for SW Consult: Possible transfer [facility]patient [place] Def[facility] lead issue Hospital course: Mr. Charles is a 67 year old male - Time Spent with Patient Total time spent providing and/or coordinating discharge services: 25min - Constitutional Vitals: Temp Pulse Resp BP Pulse Ox 97.4 F L 81 16 118/83 97 05/10/17 11:03 05/10/17 11:03 05/10/17 11:03 05/10/17 11:03 05/10/17 11:03 - Attending Attestation I examined this patient and my medical decision-making was reviewed with the Resident Physician on 05/10/17. I agree with the documented findings, disposition and treatment plan as described except to the extent set forth below. Mr Charles has been admitted for alarming of his AICD. He has been evaluated by cardiology and his device has been interrogated. There is no lead fracture. He has been up and ambulating without difficult. He is afebrile with stable vitals and is ready for discharge home. Exam Alert Comfortable Mucus membranes dry Heart reg No wheeze Plan D/C home today. This patient has been inpatient status as it was felt that he would require more than 2 midnight stay due to complexity of his issue. Evaluation has revealed no significant issue and he is able to be discharge home now.
--- NOTE | 2017-05-10 17:39 | Electrocardiograph Report ---
[place] [id number] Test Date: 2017-05-09 Pat Name: Fabio Charles Department: 102 Room: 2N8 Gender: M [employer]oke [employer] Supervisor: : 1950 Requested By: Surendra Dukes Order Number: [id number] Reading MD: Parth Yee DO Measurements Intervals [place] Rate: 59 P: 54 TX: 143 QRS: 39 QRSD: 86 T: 40 QT: 422 QTc: 421 Interpretive Statements SINUS BRADYCARDIA Electronically Signed On 05-10-2017 17:37:35 EST by Parth Yee DO
[2017-05-10] MEDS ORDERED: *HR* Warfarin 5 MG TABLET PO SCH (18:00)
== END 2017-05-10 16:43 | disposition home or self-care (01) | DRG 310 ==
LOC: EMEROO 13:25 → 2NENU 17:17
PROVIDERS: ADMIT Internal Medicine; ATTEND Internal Medicine